=== PATIENT | female | born 1995 | race Caucasian/White ===

== ENCOUNTER 2020-02-15 12:30 | Emergency (ER) | payer BC, SELFPAY ==
[2020-02-15 12:50] VITALS: BP 137/87; PULSE 67; RESP 16; TEMP 37.1; O2SAT 98
--- NOTE | 2020-02-15 13:29 | ED.URI ---
HPI - URI/Sore Throat General Chief Complaint: Upper Respiratory Infection Stated Complaint: discomfort when swallowingh Time Seen by Provider: 02/15/20 13:20 Source: patient and RN notes reviewed Mode of arrival: ambulatory Limitations: no limitations History of Present Illness HPI Narrative: 24 year old female who presents to [facility] care with complaints of sore throat since this morning and left ear pressure. Patient states that she has also had same symptoms in the past on alternating sides. Patient denies any fever, chills, sweats, states no acute sinus congestion, some clear drainage. Patient denies any cough, shortness of pressure or any chest congestion. Patient states that she notes white pus pockets on her left tonsil MD elicited complaint: sore throat and other (left ear pressure) Pertinent past history: other (sore throat) Onset (ago): hour(s) (since this morning) Consistency: intermittent Severity: moderate Pain scale (0-10): 5 Description of mucous: clear Exacerbating factors: swallowing Relieving factors: nothing Associated symptoms: ear pain (pressure) Treatments prior to arrival: other (Mucinex) Related Data Home Medications Medication Instructions Recorded Confirmed norgestimate-ethinyl estradiol 1 tablet PO DAILY 02/15/20 02/15/20 [Tri Femynor] spironolactone 50 mg PO DAILY 02/15/20 02/15/20 Allergies Allergy/AdvReac Type Severity Reaction Status Date / Time No Known Allergies Allergy Verified 02/15/20 12:54 Review of Systems Review of Systems: Narrative: CONSTITUTIONAL: Denies fever, chills, or sweats. EYES: Denies visual changes, redness, or discharge. ENT: Denies rhinorrhea, congestion,positive for sore throat, and left otalgia. CARDIOVASCULAR: Denies chest pain, palpitations, or edema. RESPIRATORY: Denies cough or dyspnea. GASTROINTESTINAL: Denies abdominal pain, nausea, vomiting, or diarrhea. GENITOURINARY: Denies dysuria or hematuria. SKIN: Denies rash or itching. MUSCULOSKELETAL: Denies back pain, joint pain, or myalgia. NEUROLOGIC: Denies headache, numbness, or weakness. PSYCHIATRIC: Denies anxiety or depression. All systems reviewed & are unremarkable except as noted in HPI and below PMFSH Past Medical History Medical History (Updated 02/18/20 @ 19:29 by Rebecca Cortes NP) No significant medical problems Surgical History Surgical History (Updated 02/18/20 @ 19:29 by Rebecca Cortes NP) No history of previous surgery Social History Social History (Updated 02/18/20 @ 19:28 by Rebecca Cortes NP) Smoking status: Never smoker Alcohol intake: unknown Substance use: never Living arrangements: with family Gender identity (if verbalized by the patient): Female Comments At time of signature, agree with nursing past medical, surgical, social history. There is no relevant family history pertinent to the presenting complaint Exam Narrative: Exam Narrative: GENERAL: Well-appearing, well-nourished, and in no acute distress. HEAD: Normocephalic, atraumatic. EYES: PERRLA and EOMI. ENT: Nares red, clear rhinorrhea no epistaxis. Mucous membranes moist.TM;s normal with good light reflex, throat has some redness with left tonsil having what appear to be tonsil stones and is swollen. post nasal drainage noted. NECK: Supple.no lymphadenopathy CHEST: Clear to auscultation. No respiratory distress.SAO2 98% on room air HEART: Regular rate and rhythm. No murmur heard. Normal peripheral pulses. ABDOMEN: Soft, nontender, nondistended, normal active bowel sounds. EXTREMITIES: Normal range of motion. No edema. SKIN: Warm, dry, no rash. NEURO: No focal deficits. Alert and oriented x3. Course Vital Signs Vital signs: Vital Signs Temperature 37.1 C 02/15/20 12:50 Pulse Rate 67 02/15/20 12:50 Respiratory Rate 16 02/15/20 12:50 Blood Pressure 137/87 02/15/20 12:50 Pulse Oximetry 98 02/15/20 12:50 Temperature 37.1 C 02/15/20 12:50 Pulse Rate 67
== END 2020-02-15 13:53 | disposition home or self-care (01) ==
PROVIDERS: Emergency Provider Registered Nurse
DX: J06.9 Acute upper respiratory infection, unspecified (principal); J02.9 Acute pharyngitis, unspecified
CPT/HCPCS: 87081; 87804; 87880; 99203; G0463